=== PATIENT | female | born 1995 | race Caucasian/White ===

== ENCOUNTER 2017-08-30 00:48 | Emergency (ER) | payer BC ==
[~2017-08-30] VITALS: Ht 167.6 cm; Wt 73.0 kg
[2017-08-30 01:11] VITALS: BP 142/54; PULSE 77; RESP 16; TEMP 98.2; O2SAT 100
[2017-08-30] MEDS ORDERED: CLAR10CA3 PO (02:13)
[2017-08-30] MEDS ORDERED: MEDR4PAK PO (02:13)
[2017-08-30] MEDS ORDERED: FAMO1TAB73 PO (02:13)
--- NOTE | 2017-08-30 02:14 | PD ---
HPI Chief Complaint: Skin Problem Time Seen by Provider: 02:01 Travel History International Travel<30 days: No Contact w/Intl Traveler<30days: No Traveled to known affect area: No History of Present Illness HPI Patient comes in stating that she started to develop some hives throughout bilateral extremities. When asked the patient stated that she does have a cat and has just given the cat a Flea treatment. Patient states that the lesions are very itchy, she denies any fever cough nausea vomiting diarrhea or shortness of breath. Also denies any changes in voice No known drug allergy Patient denies any significant medical or surgical history PFSH Past Medical History Medical History: Denies Significant Hx Tetanus Vaccination: Unknown ?: Not LMP: 08/14/17 : 0 Para: 0 Past Surgical History Other Surgery: Yes (ORAL SURGERY) Social History Alcohol Use: Yes (RARELY) Tobacco Use: No Substance Use: No Allergies-Medications (Allergen,Severity, Reaction): Coded Allergies: No Known Allergies (Verified Allergy, Unknown, 08/30/17) Reported Meds & Prescriptions Reported Meds & Active Scripts Active No Active Prescriptions or Reported Medications Review of Systems General / Constitutional: No: Fever Eyes: No: Visual changes HENT: No: Headaches Cardiovascular: No: Chest Pain or Discomfort Respiratory: No: Shortness of Breath Gastrointestinal: No: Abdominal Pain Genitourinary: No: Dysuria Musculoskeletal: No: Pain Skin: Positive Rash, Positive Itching Neurologic: No: Weakness Psychiatric: No: Depression Endocrine: No: Polydipsia Hematologic/Lymphatic: No: Easy Bruising Physical Exam Narrative GENERAL: SKIN: Warm and dry. Hives noted on her right ventral aspect of her distal wrist , she also has other insect like punctures on the left ventral aspect with surrounding erythema as well these are all consistent with hives secondary to insect bites HEAD: Atraumatic. Normocephalic. EYES: Pupils equal and round. No scleral icterus. No injection or drainage. ENT: No nasal bleeding or discharge. Mucous membranes pink and moist. NECK: Trachea midline. No JVD. CARDIOVASCULAR: Regular rate and rhythm. RESPIRATORY: No accessory muscle use. Clear to auscultation. Breath sounds equal bilaterally. GASTROINTESTINAL: Abdomen soft, non-tender, nondistended. Hepatic and splenic margins not palpable. MUSCULOSKELETAL: Extremities without clubbing, cyanosis, or edema. No obvious deformities. NEUROLOGICAL: Awake and alert. No obvious cranial nerve deficits. Motor grossly within normal limits. Five out of 5 muscle strength in the arms and legs. Normal speech. PSYCHIATRIC: Appropriate mood and affect; insight and judgment normal. Data Data Last Documented VS Vital Signs Date Time Temp Pulse Resp B/P (MAP) Pulse Ox O2 Delivery O2 Flow Rate FiO2 08/30/17 01:11 98.2 77 16 142/54 (83) 100 Orders Orders Sodium Chloride 0.9% Flush (Ns Flush) (08/30/17 02:15) Epinephrine (1:1000) Inj (Adrenalin (1:1 (08/30/17 02:15) Dexamethasone Inj (Decadron Inj) (08/30/17 02:15) Diphenhydramine (Benadryl) (08/30/17 02:15) Famotidine (Pepcid) (08/30/17 02:15) [facility] Medical Decision Making Medical Screen Exam Complete: Yes Emergency Medical Condition: Yes Medical Record Reviewed: Yes Differential Diagnosis Cellulitis versus abscess versus hives versus angioedema Narrative Course Clinically the patient has no evidence of any stridor, wheezing, uvular edema, or any edema of lips tongue or uvula. Clinically no evidence of angioedema Generalized hives patient will be treated with antihistamines steroid and EpiPen 1 Patient will be observed and then discharged Diagnosis Primary Impression: Hives Patient Instructions: General Allergic Reaction (ED), General Instructions Scripts Famotidine (Pepcid) 40 Mg Tab 40 MG PO DAILY, #5 TAB 0 Refills Prov: Cristiano Godoy MD 08/30/17 Loratadine (Claritin) 10 Mg Cap 10 MG PO DAILY for Allergy Management for 5 Days, #5 CAP 0 Refills Prov: Cristiano Godoy MD 08/30/17 Methylprednisolone Dosepak (Medrol Dosepak) 4 Mg Dspk 4 MG PO DIRECTED, #1 DSPK 0 Refills Per Pharmacist direction Prov: Cristiano Godoy MD 08/30/17 Disposition: 01 DISCHARGE HOME Condition: Stable Cristiano Godoy MD Aug 30, 2017 02:14
[2017-08-30] MEDS ORDERED: EPINEPHrine HCL (1:1000) 1 MG/ML VIAL IM ONE (02:15)
[2017-08-30] MEDS ORDERED: FAMOTIDINE 20 MG TAB PO ONE (02:15)
[2017-08-30] MEDS ORDERED: SODIUM CHLORIDE 0.9% FLUSH 10 ML FLUSH IV FLUSH PRN (02:15)
[2017-08-30] MEDS ORDERED: diphenhydrAMINE HCL 50 MG CAP PO ONE (02:15)
[2017-08-30] MEDS ORDERED: DEXAMETHASONE SOD PHOS 20 MG/5 ML VIAL IM ONE (02:15)
[2017-08-30 03:18] VITALS: BP 126/75; PULSE 94
== END 2017-08-30 03:33 | disposition home or self-care (01) ==
LOC: NEPC 00:48
DX: L50.9 Urticaria, unspecified (principal)
CPT/HCPCS: 96372; 99283; J0171; J1100; Q0163